=== PATIENT | male | born 1990 | race Caucasian/White ===

== ENCOUNTER 2017-10-21 11:09 | Emergency (ER) | payer OTHER ==
[2017-10-21 11:14] VITALS: BP 127/82; PULSE 60; RESP 16; TEMP 98.2; O2SAT 96
[2017-10-21] MEDS ORDERED: TDAP ADULT 0.5 ML INJ (BOOSTRIX) IM ONE (11:26)
--- NOTE | 2017-10-21 11:27 | EDPHY ---
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 He reports that he was trying to open up a metal door handle and he broke it causing it to cut his right index finger. He denies any decreased range of motion/paresthesias/skin color changes. He is unsure of his last tetanus booster is required 1 today. Reports that he washed with soap and water and applied Purell. Modifying Factors: See above Comment: ROS: see HPI Constitutional: No fever, no chills, no weight loss Eyes: No blurred vision Respiratory: No shortness of breath, no cough Cardiovascular: No chest pain Gastrointestinal: No nausea, no vomiting no diarrhea Genitourinary: No dysuria Extremities: No myalgias Neurologic: No weakness, no numbness Skin: No rashes Hematologic: No bruising, no bleeding MEDICAL/SURGICAL/SOCIAL HISTORY: Medical history: Generally healthy. Does not take any regular medications. Surgical history: Denies Social history: employed as a local police aide CONSTITUTIONAL: Well-developed well-nourished adult white male, polite and cooperative, awake and alert, no obvious distress HEENT: Atraumatic and normocephalic, PERRL, EOMI. Tympanic membranes clear. Oropharynx clear, no exudate and moist pink mucosa. Airway patent. No lymphadenopathy. No meningismus. Cardiovascular: Normal S1/S2, regular rate, regular rhythm, without murmur rub or gallop. PULMONARY/CHEST: Symmetrical and nontender. Clear to auscultation bilaterally. Good air movement. No accessory muscle usage. ABDOMEN: Soft, nondistended, nontender, no rebound, no guarding, no peritoneal signs, no masses or organomegaly. No CVAT. EXTREMITIES: 2/2 rate pulses, biology faculty member strength 5/5, right index finger palmar aspect shows 2 pinpoint abrasions at the PIP joint; no erythema; no deformities , no clubbing, no cyanosis or edema. DIP/PIP/MCP joints have full range of flexion extension. Good light touch sensation. NEUROLOGICAL: no focal neuro deficits. GCS 15. SKIN: Warm and dry, no erythema. no rash. Good capillary refill. Source: Patient Exam Limitations: No limitations - Personal History Current Tetanus/Diphtheria Vaccine: Unsure - Medical/Surgical History Hx Asthma: No Hx Chronic Respiratory Disease: No Hx Diabetes: No Hx Cardiac Disease: No Hx Renal Disease: No Hx Cirrhosis: No Hx Alcoholism: No Hx HIV/AIDS: No Hx Splenectomy or Spleen Trauma: No Other PMH: denies - Social History Smoking Status: Never smoked Constitutional: Initial Vital Signs Temperature (C) 36.8 C 10/21/17 11:11 Heart Rate 60 10/21/17 11:11 Respiratory Rate 16 10/21/17 11:11 Blood Pressure 127/82 H 10/21/17 11:11 O2 Sat (%) 96 10/21/17 11:11 O2 Delivery Mode Room Air Allergies/Adverse Reactions: No Known Allergies Allergy (Unverified 10/21/17 11:27) Home Medications: Medication Instructions Recorded NK [No Known Home Meds] 10/21/17 Medical Decision Making ED Course/Re-evaluation: Tetanus booster given Wash with soap and water; irrigated. Patient politely declined any dressing. No signs of neurovascular compromise/tenting of skin/compartment syndrome/ extremities and joints examined above and below area of concern and are neurovascularly intact/tendon injury. Advised local wound care This patient was seen under the supervision of my secondary supervising physician. I evaluated care for this patient independently. Differential Diagnosis: Differential diagnosis includes but not limited to contusion, abrasion, laceration, nerve injury, tendon injury, foreign body, phalanx fracture. - Data Points Medications Given: Discontinued Medications Diphtheria/Tetanus/Acell Pertussis (Boostrix) 0.5 ml IM .ONCE ONE Stop: 10/21/17 11:27 Last Admin: 10/21/17 11:34 Dose: 0.5 ml Departure - Departure Disposition: Home, Routine, Self-Care Clinical Impression: Abrasion of right index finger, initial encounter Condition: Good Instructions: Abrasion (ED) Additional Instructions: Wash the site daily with mild soap and water; then pat dry; keep covered with clean sterile dressing and all fully healed. Take Tylenol 650 mg every 4 hours and/or Ibuprofen 600 mg every 8 hours with food as needed for pain. Monitor for signs and symptoms of infection. Patient is medically cleared to return back to work today. Referrals: [facility],. [Clinic] - As per Instructions
[2017-10-21] MEDS ORDERED: LET GEL TOPICAL 1 EA SYR TP ONE (11:46)
== END 2017-10-21 12:02 | disposition home or self-care (01) ==
DX: S60.410A Abrasion of right index finger, initial encounter (principal); Z23 Encounter for immunization; W45.8XXA Other foreign body or object entering through skin, initial encounter; Y92.89 Other specified places as the place of occurrence of the external cause; Y99.0 Civilian activity done for income or pay; Y93.89 Activity, other specified